=== PATIENT | male | born 1930 | race Caucasian/White ===

== ENCOUNTER 2017-08-05 05:47 | Observation (INO) | payer OTHER ==
--- NOTE | 2017-08-04 15:11 | GHP ---
[f rep st] PREOP HISTORY AND PHYSICAL DATE OF ADMISSION: 08/05/2017 HISTORY OF PRESENT ILLNESS: This is an 87-year-old gentleman who was seen in the office, and cystosc opy revealed that he had significant BPH with urinary obstruction and had a bladder tumor at the ante rior bladder neck. At the present time, he is admitted for TURP/TURBT. He has had gross hematuria, his initial evaluation for this, and he does have slow flow. He has an AUA score of 15 with a qualit y of life score of 3. 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 He has had previous PSAs that have been below 4. He has been on Avodart in the past, and he had a TURP 12 years ago via another physician. He has had urinary leakage for 2-3 months. Myrbetriq was h elpful but expensive in the past, so at the present time, he is admitted for the TURP/TURBT. PAST MEDICAL HISTORY: History of bladder cancer, BPH with obstruction, hypercholesterolemia, gout, a nd hypertension. PAST SURGICAL HISTORY: Prostate, knee, inguinal hernia, and appendix. MEDICATIONS: Avodart, Lopressor, losartan, methyclothiazide, and PreserVision. ALLERGIES: IVP contrast and penicillins. FAMILY HISTORY: Positive for kidney disease and heart disease. SOCIAL HISTORY: Nondrinker. Former smoker. Immunizations administered 06/04/2017, both influenza a nd PCV. REVIEW OF SYSTEMS: Negative cardiac, respiratory, GI, and endocrine. PHYSICAL EXAMINATION: VITAL SIGNS: Stable. CHEST: Clear. HEART: Regular rate and rhythm. ABDOM EN: Normal. No organomegaly, rebound, or guarding. EXTREMITIES: Lower extremities are normal at t he present time. He is to undergo a transurethral resection of the prostate and of bladder tumor. /[id number]/MODL
[2017-08-05] MEDS ORDERED: LR 1,000 ML IV ONE (06:11)
[2017-08-05] MEDS ORDERED: LIDOCAINE 1% 2 ML INJ ID PRN (06:11)
--- NOTE | 2017-08-05 06:50 | PDANEPAE ---
ANE History of Present Illness 87 year old male for turp/turbt. 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 Unknown origin. - Pulmonary History Hx COPD: No Hx Asthma/Reactive Airway Disease: No Hx Recent Upper Respiratory Infection: No Hx Oxygen in Use at Home: No Hx Sleep Apnea: No Sleep Apnea Screening Result - Last Documented: Positive - Neurologic History Hx Cerebrovascular Accident: No Hx Seizures: No Hx Dementia: No - Endocrine History Hx Diabetes: No Hypothyroid: No Hyperthyroid: No Obesity: no - Renal History Hx Renal Disorders: Yes Renal History Comment: BPH - Liver History Hx Hepatic Disorders: No - Neurological & Psychiatric Hx Hx Neurological and Psychiatric Disorders: No - Cancer History Hx Cancer: No - Congenital Disorder History Hx Congenital Disorders: No - GI History GERD: no Hx Gastrointestinal Disorders: No - Other Health History Other Health History: rash-back,legs, arms x 3yrs. Oil glands on eyelids "stopped up" on Flura drops - Chronic Pain History Chronic Pain: No - Surgical History Prior Surgeries: TURP ~ 2001. knee scope. rib resection. appy ANE Review of Systems Review of systems is: negative Review of Systems: - Exercise capacity Exercise capacity: >=4 METS METS (RN): 4 METS ANE Patient History - Allergies Allergies/Adverse Reactions: cephalexin monohydrate [From Keflex] Allergy (Verified 07/22/17 14:04) Dyspnea Penicillins Allergy (Verified 07/22/17 14:04) Dyspnea CONTRAST DYE Allergy (Uncoded 09/28/11 13:22) Dyspnea - Home Medications Home medications: home medication list seen and reviewed Home Medications: Finasteride [Proscar 5 MG (*)] 5 mg PO HS 01/26/15 [Last Taken 08/04/17 21:00] Methyclothiazide [Enduron] 5 mg PO DAILY 01/26/15 [Last Taken 08/03/17] Metoprolol Tartrate [Lopressor 50 mg (*)] 50 mg PO DAILY 01/26/15 [Last Taken 05:00] Multivitamins [Multivitamin (*)] 1 each PO HS 01/26/15 [Last Taken 07/31/17] Potassium Cl [Klor-Con 20 meq (*)] 20 meq PO HS 01/26/15 [Last Taken 08/05/17 05 :00] Vit C/Dl-E AC/Lut/Copper/Znox [Preservision Softgel] 1 each PO BID 01/26/15 [ Last Taken 08/05/17 05:00] Losartan Potassium [Cozaar 50 mg (*)] 50 mg PO DAILY 07/20/17 [Last Taken 05:00] - NPO status NPO Status: no food or drink >8 hours NPO Since - Liquids (Date): 08/04/17 NPO Since - Liquids (Time): 21:00 NPO Since - Solids (Date): 08/04/17 NPO Since - Solids (Time): 21:00 - Anes Hx Anes Hx: no prior problems - Smoking Hx Smoking Status: Former smoker - Family Anes Hx Family Anes Hx: neg - N/A ANE Labs/Vital Signs - Vital Signs Vital Signs: reviewed preoperatively; see RN documention for details Blood Pressure: 151/76 Heart Rate: 66 Respiratory Rate: 16 O2 Sat (%): 95 Height: 167.64 cm Weight: 70.307 kg ANE Physical Exam - Airway Neck exam: decreased ROM Mallampati Score: Class 3 Mouth exam: normal dental/mouth exam - Pulmonary Pulmonary: no respiratory distress - Cardiovascular Cardiovascular: regular rate and rhythym - ASA Status ASA Status: II ANE Anesthesia Plan Anesthesia Plan: general endotracheal anesthesia Total IV Anesthesia: No
[2017-08-05] MEDS ORDERED: VANCOMYCIN PHARMACY TO DOSE MISC ONE (06:56)
--- NOTE | 2017-08-05 06:56 | PDHPUP ---
History & Physical Update H&P update statement: This history and physical update is based on an assessment of the patient which was completed after admission or registration (within 24 hours), but prior to the surgery/procedure. H&P update: H&P reviewed & patient examined, no change in patient's condition since H&P completed
[2017-08-05] MEDS ORDERED: VANCOMYCIN HCL/NORMAL SALINE 250 ML IV ONE (07:00)
[2017-08-05] MEDS ORDERED: PROPOFOL 200 MG/20 ML VIAL ONE (07:07)
[2017-08-05] MEDS ORDERED: fentaNYL 100 MCG/2 ML INJ ONE (07:07)
[2017-08-05] MEDS ORDERED: LIDOCAINE 2% 5 ML SDV ONE (07:08)
[2017-08-05] MEDS ORDERED: ROCURONIUM 50 MG/5 ML VIAL ONE (07:08)
[2017-08-05] MEDS ORDERED: ONDANSETRON 4 MG/2 ML VIAL ONE (07:16)
[2017-08-05] MEDS ORDERED: DEXAMETHASONE 4 MG/ML VIAL ONE (07:16)
[2017-08-05] MEDS ORDERED: fentaNYL 100 MCG/2 ML INJ IVP PRN (07:23)
[2017-08-05] MEDS ORDERED: LR 500 ML IV PRN (07:23)
[2017-08-05] MEDS ORDERED: NALOXONE HCL 0.4 MG/ML INJ IVP PRN (07:23)
[2017-08-05] MEDS ORDERED: ONDANSETRON 4 MG/2 ML VIAL IVP PRN ×2 (07:23→08:25)
[2017-08-05] MEDS ORDERED: HYDROCODONE/APAP 5/325 TAB PO PRN ×2 (07:23→08:25)
[2017-08-05] MEDS ORDERED: PHENYLEPHRINE HCL 100 MCG/ML SYR ONE (07:47)
[2017-08-05] MEDS ORDERED: epHEDrine SULFATE 10 MG/ML SYR ONE (07:47)
[2017-08-05] MEDS ORDERED: SUGAMMADEX SODIUM 200 MG/2 ML VIAL IVP ONE (07:55)
[2017-08-05] MEDS ORDERED: LIDOCAINE 2% JELLY 20 ML (UROJECT) ONE (07:58)
[2017-08-05] MEDS ORDERED: ACETAMINOPHEN 325 MG TAB PO PRN (08:25)
[2017-08-05] MEDS ORDERED: ZOLPIDEM TARTRATE 5 MG TAB PO PRN (08:25)
[2017-08-05] MEDS ORDERED: OPIUM/BELLADONNA ALKALO SUPP PR PRN (08:25)
[2017-08-05] MEDS ORDERED: ONDANSETRON DISINTEGRATING 4 MG TAB PO PRN (08:25)
--- NOTE | 2017-08-05 08:33 | POSTOPPROG ---
Post Op Note Date of Operation: 08/05/17 Surgeon: Ozzie Guillory Anesthesia: LMA Pre-op Diagnosis: bladder tumor / bph Post-op Diagnosis: same Procedure: turbt Inf/Abcess present in the surg proc area at time of surgery?: No EBL: Minimal Drains: Other (bolanos) Specimen(s): sent turbt--dictated
--- NOTE | 2017-08-05 08:46 | GOP ---
[f rep st] OPERATIVE REPORT DATE OF OPERATION: 08/05/2017 SURGEON: Ozzie Guillory MD PREOPERATIVE DIAGNOSIS: Bladder cancer, BPH, and gross hematuria. POSTOPERATIVE DIAGNOSIS: Bladder cancer, BPH, and gross hematuria. PROCEDURE PERFORMED: Transurethral resection of a bladder tumor. FINDINGS: DESCRIPTION OF PROCEDURE: After appropriate time-out and identifying the patient, consent, prep and drape, the gentleman had resectoscope passed into the bladder under direct vision. On visualization of the bladder, he initially had an obvious bladder neck anteriorly tumor that appeared to be encroac martita upon the bladder neck prostate, but on further inspection of the bladder, he had multiple lesion s on the left side of the bladder and then some just inside the bladder neck distal to the top of the trigone. At that point, I resected the bladder tumor and the bladder neck tumors and, because of th e thinness of the bladder wall and the left lateral wall tumors, I elected not to do the TURP because of increased intravesical pressure to do that, and it could cause perforation of the bladder. So, a fter resection of all the tumors, I Ellik'd the tumors separate and sent them for specimen. I did do a bit of an incision of bladder neck with the button bipolar electrode. At the end of the procedure , visualization of all the operative sites. There was no perforation of the bladder. There was hemo stasis and no residual chips. The size of the bladder tumor area on the left lateral wall where the bladder was inflated was approximately 3 cm surface area that was involved, and then just below the t op of the trigone in the midline there was approximately a 1 cm area involved when the bladder was in flated, and then the anterior bladder neck lesion was approximated as a centimeter. Specimens were s ent to Pathology. Uro-Jet placed in the urethra and 3-way catheter passed in the bladder over a Sonny richard guide, and urine irrigated clear. At the present time, he will be admitted for postoperative ca re. I will discuss the issues with his , and if the patient is voiding well, we will avoid doing the TURP at a later date. If he is having some voiding dysfunction, then consideration of a TURP af ter final pathology and recovery from this procedure. It was a clinical decision on my part to avoid doing the TURP because of the intraoperative findings that were noted. /[id number]/MODL
[2017-08-05] MEDS ORDERED: COPPER PO SCH (09:00)
[2017-08-05] MEDS ORDERED: ZNOX PO SCH (09:00)
[2017-08-05] MEDS ORDERED: LUT PO SCH (09:00)
[2017-08-05] MEDS ORDERED: VIT C PO SCH (09:00)
[2017-08-05] MEDS ORDERED: DL E AC PO SCH (09:00)
[2017-08-05] MEDS: LOSARTAN POTASSIUM 50 MG TAB PO SCH (11:28)
[2017-08-05] MEDS: [UNRECOGNIZED DRUG - OTHER] PO SCH (11:28)
[2017-08-05] MEDS: METOPROLOL TARTRATE 50 MG TAB PO SCH (11:30)
[2017-08-05] MEDS: D5W 1/2 NS 1,000 ML IV SCH (11:54)
--- NOTE | 2017-08-05 13:02 | POSTANESTH ---
Post Anesthetic Evaluation Cardiovascular Status: Normal, Stable, Similar to Pre-Op Cond Respiratory Status: Normal, Stable, Similar to Pre-op Cond. Level of Consciousness/Mental Status: Can Participate in Eval, Mildly Sleepy, Arousable Pain Control: Adequate, Prn Tx Ordered Nausea/Vomiting Control: Adequate, Prn Tx Ordered Complications Possibly Related to Anesthesia: None Noted
[2017-08-05] MEDS: PRESERVISION AREDS2 FORMULA EYE VIT 1 EACH PO SCH (18:16)
[2017-08-05] MEDS ORDERED: FINASTERIDE 5 MG TAB PO SCH (21:00)
[2017-08-05] MEDS ORDERED: MULTIVITAMINS 1 EACH TAB PO SCH (21:00)
[2017-08-05] MEDS ORDERED: POTASSIUM CL 20 MEQ TAB PO SCH (21:00)
[2017-08-06] MEDS: D5W 1/2 NS 1,000 ML IV SCH (06:30)
[2017-08-06] MEDS: LOSARTAN POTASSIUM 50 MG TAB PO SCH (08:56)
[2017-08-06] MEDS: METOPROLOL TARTRATE 50 MG TAB PO SCH (08:56)
[2017-08-06] MEDS: PRESERVISION AREDS2 FORMULA EYE VIT 1 EACH PO SCH (08:56)
[2017-08-06] MEDS: [UNRECOGNIZED DRUG - OTHER] PO SCH (08:56)
--- NOTE | 2017-08-06 13:41 | SOAPPROG ---
SOAP Progress Note Assessment/Plan: Assessment: Benign prostatic hyperplasia (BPH) with urinary urgency Acute not addressed at this visit Bladder cancer Acute TURBT and stopped with this procedure due to tumor volume and sites Bladder trabeculation Chronic and no need for assessment at this time Plan: ISABEL bolanos and follow up as outpt, path pending 08/06/17 13:39 Subjective: ready for home Objective: Vital Signs Temp Pulse Resp BP Pulse Ox 36.7 C 66 20 164/76 H 92 08/06/17 12:00 08/06/17 12:00 08/06/17 12:00 08/06/17 13:21 08/06/17 12:00 08/05/17 08/06/17 08/07/17 05:59 05:59 05:59 Intake Total 2529 Output Total 2004 0869 Balance 525 -3721 Physical Exam - Physical Exam General Appearance: alert Respiratory: No respiratory distress Cardiac/Chest: regular rate, rhythm Abdomen: soft Back: No CVA tenderness Neuro/Psych: alert, oriented x 3 ICD10 Worksheet Patient Problems: Problems Problem Status Onset Benign prostatic hyperplasia (BPH) with urinary urgency Acute Bladder cancer Acute Bladder trabeculation Acute Acute respiratory failure Acute
[2017-08-06 15:26] VITALS: BP 167/72; PULSE 63; RESP 16; TEMP 97.7; O2SAT 94
--- NOTE | 2017-08-06 16:13 | ASDISCHSUM ---
Discharge Information Plan Status:Home with No Needs Medically Cleared to Leave: Discharge Date: CM D/C Disposition: ADT D/C Disposition:Home, Routine, Self-Care Projected Discharge Date: Transportation at D/C: Discharge Delay Reason: Follow-Up Date: Discharge Slot: Final Diagnosis: Placement Information Patient Contact Information Contact Name:DEDE Relationship: Address:[address] [place] [address] City:[place] Phone: State/Zip Code:[place] [address] Email: Financial Information Financial Class:Medicare Advantage Plans Primary Plan Desc:[facility] [employer] Primary Plan Number:[id number] Secondary Plan Desc: Secondary Plan Number: Assessment Information Intervention Information Intervention Type:*MARRERO-Signed Date of Service:08/06/2017 10:12 AM Patient Type:Observation Staff Member:Cielo Connolly Hours: Discipline: Severity: Comment:
--- NOTE | 2017-08-06 16:14 | ASMTCMCOM ---
CM Note CM Note Notes: Pt will Dc today with no needs. Met with pt to do a distress screening as he was admitted for surgery for bladder cancer. However, pt stated that they do not know if he has bladder cancer until the resulst from his surgical specimen are back. Date Signed: 08/06/2017 04:14 PM Electronically Signed By:Raven Clark LCSW
== END 2017-08-06 17:20 | disposition home or self-care (01) ==
LOC: F3N 05:47 → F1N 10:53
PROVIDERS: ADMIT Specialist; ATTEND Specialist
PROC: 0TBC8ZZ Excision of Bladder Neck, Via Natural or Artificial Opening Endoscopic (ICD-10-PCS; principal; 2017-08-05 07:15)
PROC: 0TBB8ZZ Excision of Bladder, Via Natural or Artificial Opening Endoscopic (ICD-10-PCS; principal; 2017-08-05 07:15)
DX: C67.5 Malignant neoplasm of bladder neck (principal); C67.2 Malignant neoplasm of lateral wall of bladder; C67.0 Malignant neoplasm of trigone of bladder; R31.0 Gross hematuria; Z53.09 Procedure and treatment not carried out because of other contraindication; N40.1 Benign prostatic hyperplasia with lower urinary tract symptoms; R35.1 Nocturia; E78.00 Pure hypercholesterolemia, unspecified; M10.9 Gout, unspecified; I10 Essential (primary) hypertension
CPT/HCPCS: 52240; 52630; G0378; J1100; J2370; J2405; J2704; J3010; J3370